=== PATIENT | female | born 1990 | race Two or more races ===

== ENCOUNTER 2018-12-10 07:59 | Emergency (ER) | payer MEDICAID ==
[~2018-12-10] VITALS: Ht 299.7 cm; Wt 127.0 kg
[2018-12-10 08:22] VITALS: BP 170/98
[2018-12-10] MEDS ORDERED: IBUPROFEN 800 MG TAB PO ONE (09:30)
== END 2018-12-10 10:12 | disposition home or self-care (01) ==
LOC: EDBD 07:59 → ER 07:59
DX: S76.012A Strain of muscle, fascia and tendon of left hip, initial encounter (principal); V43.52XA Car driver injured in collision with other type car in traffic accident, initial encounter; Y93.89 Activity, other specified; Y92.488 Other paved roadways as the place of occurrence of the external cause; Y99.8 Other external cause status

== ENCOUNTER → 2019-10-08 | Emergency (ER) | payer MEDICAID, OTHER ==
[~2019-10-08] VITALS: Ht 167.6 cm; Wt 131.5 kg
[2019-10-08 17:45] VITALS: BP 147/92
== END | disposition home or self-care (01) ==
LOC: ER 17:39 → EDUNIT# 17:39
DX: U07.1 COVID-19 (principal)
CPT/HCPCS: 71045

== ENCOUNTER 2019-10-12 14:44 | Emergency (ER) | payer MEDICAID ==
[~2019-10-12] VITALS: Ht 167.6 cm; Wt 131.5 kg
[2019-10-12 14:57] VITALS: BP 169/96
== END 2019-10-12 15:37 | disposition home or self-care (01) ==
LOC: ER 14:44
DX: R50.9 Fever, unspecified (principal); R53.1 Weakness; R53.83 Other fatigue; Z20.828 Contact with and (suspected) exposure to other viral communicable diseases; Z87.891 Personal history of nicotine dependence; Z88.1 Allergy status to other antibiotic agents

== ENCOUNTER 2022-07-23 07:15 | Emergency (ER) | payer MEDICAID ==
[~2022-07-23] VITALS: Ht 165.1 cm; Wt 120.5 kg
[~2022-07-23 07:15] MED LIST: AZIT500T66 PO; LIDO2SOL23 MT
[2022-07-23 08:43] VITALS: BP 158/91
[2022-07-23] MEDS ORDERED: KETOROLAC TROMETH 30 MG/ML 1ML VIAL IM ONE (09:00)
[2022-07-23] MEDS ORDERED: CYCL-839 PO (09:01)
[2022-07-23] MEDS ORDERED: IBUP600T28 PO (09:02)
== END 2022-07-23 09:28 | disposition home or self-care (01) ==
LOC: ER 07:15
DX: S16.1XXA Strain of muscle, fascia and tendon at neck level, initial encounter (principal); F12.10 Cannabis abuse, uncomplicated; Z87.891 Personal history of nicotine dependence; Z88.1 Allergy status to other antibiotic agents; X50.0XXA Overexertion from strenuous movement or load, initial encounter; Y93.89 Activity, other specified; Y92.89 Other specified places as the place of occurrence of the external cause; Y99.8 Other external cause status
CPT/HCPCS: 72040; 96372; 99283; J1885

== ENCOUNTER 2023-12-30 10:00 | Inpatient (IN) | payer MEDICAID ==
[~2023-12-30] VITALS: Ht 165.1 cm; Wt 119.5 kg
[~2023-12-30 10:00] MED LIST changes: +CYCL-839 PO; +IBUP1TAB5 PO; -LIDO2SOL23 MT; +LIDO2SOL26 MT
[2023-12-30 10:58] LABS: Basophils # (auto) 0 10 ^3/uL (0-0.2); Basophils % (auto) 0.4 % (0.0-2.0); Eosinophils # (auto) 0.2 10 ^3/uL (0-0.8); Eosinophils % (auto) 1.7 % (0.0-7.0); Hemoglobin 14.9 g/dL (12.2-16.2); Lymphocytes # (auto) 1.2 10 ^3/uL (0.4-5.4); Lymphocytes % (auto) 12.1 % (10.0-50.0); Mean Corpuscular Hemoglobin 29.6 pg (28.0-32.0); Mean Corpuscular Hgb Conc. 34.6 g/dL (32.0-36.0); Mean Corpuscular Volume 85.6 fL (80.0-100.0); Monocytes # (auto) 0.6 10 ^3/uL (0-1.3); Monocytes % (auto) 6.7 % (0.0-12.0); Neutrophils # (auto) 7.7 10 ^3/uL (1.6-8.6); Neutrophils % (auto) 79.1 % (37.0-80.0); Nucleated Red Blood Cells % 0.1 %; Platelet Count (auto) 282 10^3/uL (140-450); Red Blood Cells 5.02 10^6/uL (4.0-5.20); Red Cell Distribution Width 13.8 % (11.8-14.3); White Blood Cell 9.7 10^3/uL (4.4-10.8)
[2023-12-30 11:06] LABS: Chloride 106 mmol/L (98-107); Potassium 3.8 mmol/L (3.5-5.1); Sodium 139 mmol/L (136-145)
[2023-12-30] MEDS: SODIUM CHLORIDE 0.9% 1,000 ML IV ONE (11:06)
[2023-12-30 11:07] LABS: Anion Gap 9 (5-15); Carbon Dioxide 24 mmol/L (20-31)
[2023-12-30 11:08] LABS: Calcium 9.5 mg/dL (8.7-10.4)
[2023-12-30] MEDS: KETOROLAC TROMETH 30 MG/ML 1ML VIAL IV ONE (11:08)
[2023-12-30 11:12] LABS: Glucose 101 mg/dL (74-106)
[2023-12-30 11:13] LABS: Lipase 43 U/L (12-53)
[2023-12-30 11:15] LABS: BUN/Creatinine Ratio 6.4 (10.0-20.0); Blood Urea Nitrogen < 5 mg/dL (9-23)
[2023-12-30 11:23] LABS: Urine Bacteria FEW /hpf (None Seen); Urine Blood Negative /uL (Negative); Urine Clarity Clear (Clear); Urine Color Colorless (Yellow); Urine Protein, UAD Negative (Negative); Urine Specific Gravity 1.004 (1.001-1.035); Urine Urobilinogen Normal (Negative); Urine WBC <1 /hpf (0 - 5); Urine pH 5.5 (5.0-9.0)
[2023-12-30 13:34] VITALS: TEMP 98.4
[2023-12-30] MEDS ORDERED: hydrALAZINE HCL 20 MG/ML VL IV PRN (15:45)
[2023-12-30] MEDS ORDERED: KETOROLAC TROMETH 30 MG/ML 1ML VIAL IV PRN (15:45)
[2023-12-30] MEDS ORDERED: ACETAMINOPHEN 325 MG TAB PO PRN (15:45)
[2023-12-30] MEDS ORDERED: MORPHINE SULFATE INJ 2 MG/ml SYRG IV PRN (15:45)
[2023-12-30] MEDS ORDERED: ONDANSETRON HCL 4 MG/2 ML VIAL IV PRN (15:45)
[2023-12-30 16:07] VITALS: BP 139/79; PULSE 65; RESP 16; O2SAT 100
[2023-12-31] MEDS ORDERED: PANTOPRAZOLE 40 MG/10 ML VIAL INJ IV SCH (10:00)
== END 2023-12-30 17:16 | disposition left against medical advice (07) ==
LOC: ER 10:00 → OVERFLOW 15:43
PROVIDERS: ADMIT Registered Nurse General Practice; ATTEND Registered Nurse General Practice
DX: K80.20 Calculus of gallbladder without cholecystitis without obstruction (principal); E66.9 Obesity, unspecified; F17.200 Nicotine dependence, unspecified, uncomplicated; I10 Essential (primary) hypertension; Z53.29 Procedure and treatment not carried out because of patient's decision for other reasons; Z88.1 Allergy status to other antibiotic agents; Z82.49 Family history of ischemic heart disease and other diseases of the circulatory system; Z83.3 Family history of diabetes mellitus; Z68.41 Body mass index [BMI] 40.0-44.9, adult
CPT/HCPCS: 36415; 74176; 80048; 81001; 81025; 83690; 85025; 93005; G0378; J1885